=== PATIENT | female | born 1985 | race Caucasian/White ===

== ENCOUNTER 2016-04-03 22:20 | Emergency (ER) | payer OTHER ==
--- NOTE | 2016-04-04 00:12 | ED CLINICAL REPORT ---
Clinical Report - Physicians/Mid Levels [facility] [address] [place] [address] 04/03/2016 22:21 Patient: HERNANDO WILSON Time Seen: 2230. Arrived- By private vehicle. Historian- patient. HISTORY OF PRESENT ILLNESS Chief Complaint: PALPITATIONS. This started past several days, is still present but is better now and is now gone. It was abrupt in onset and has been intermittent. Modifying factors. Not worsened by anything. Not relieved by anything. It is described as a fast heart beat. No chest pain or discomfort, difficulty breathing, sweating episodes or fainting episodes. No dizziness, tingling or muscle spasms. ( reports burping and indigestion. states she took her pulse when this happens and reports it being normal. no family hx of cardiac disease/sudden . reports no leg swelling, recent trauma, hemoptysis, hx of DVT/PE). 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 Similar symptoms previously: Many times. ( reports normal EKGs). Recent medical care: Not recently seen/assessed. REVIEW OF SYSTEMS All systems otherwise negative, except as recorded above. PAST HISTORY See nurses notes. Medications: Sertraline HCl Oral. Xanax Oral (Tablet 0.25 mg) 1 tablet, as needed. Allergies: No Known Drug Allergy. SOCIAL HISTORY Never smoker. No alcohol use or drug use. Is a local resident. FAMILY HISTORY (no family hx of cardiac disease). ADDITIONAL NOTES The nursing notes have been reviewed. PHYSICAL EXAM Vital Signs: 04/03/2016 22:25 BP: 125/73. HR: 88. RR: 20. O2 saturation: 100%. Pain level now: 3/10. Blood pressure normal. Oxygen saturation normal. Appearance: Alert. Oriented X3. No acute distress. Eyes: Pupils equal, round and reactive to light. Eyes normal inspection. ENT: Ears normal. Nose normal. Pharynx normal. Neck: Normal inspection. Neck supple. CVS: Normal heart rate and rhythm. Heart sounds normal. Pulses normal. Respiratory: No respiratory distress. Breath sounds normal. Chest nontender. Abdomen: Soft and nontender. Bowel sounds normal. No organomegaly. No mass. Femoral pulses equal. Back: Normal external inspection. Skin: Skin warm and dry. Normal skin color. No rash. Normal skin turgor. Extremities: Extremities exhibit normal ROM. No lower extremity edema. Neuro: Oriented X 3. No motor deficit. No sensory deficit. Reflexes normal. LABS, X-RAYS, AND EKG EKG: No acute process. No acute ischemia. Normal EKG. Normal sinus rhythm. Rate: 85. Normal P waves. Normal FERNANDO. Normal QRS complex. Normal axis. Normal ST and T waves, QT and QTc. The study has been interpreted contemporaneously by me. The study has been independently viewed by me. The EKG appears to be a good tracing. Chest X-ray: (PROCEDURE: XR CHEST 2 VIEW INDICATION: PALPITATIONS TECHNIQUE: PA and lateral views. COMPARISON: None. FINDINGS: Lungs are clear. Heart and mediastinum are normal. Thorax is normal. IMPRESSION: 1. Negative chest.). Laboratory Tests: UA-Culture if indicated: (GEE: 04/03/2016 23:10) ( [facility] 23:53) Final results Test Result Flag Units (Reference) URINE COLOR YELLOW URINE APPEARANCE CLEAR URINE GLUCOSE NEGATIVE (NEGATIVE) URINE BILIRUBIN NEGATIVE (NEGATIVE) URINE KETONE NEGATIVE (NEGATIVE) URINE SPECIFIC GRAVITY 1.010 (1.010-1.030) URINE PH 8.0 (5.0-8.0) URINE PROTEIN NEGATIVE (NEGATIVE) URINE UROBILINOGEN 0.2 EU/dL (0.2-1.0) URINE NITRITE NEGATIVE (NEGATIVE) URINE BLOOD 3+ (NEGATIVE) URINE LEUK ESTERASE NEGATIVE (NEGATIVE) URINE RBC 10-25 rbc/hpf (0-1) URINE WBC 3-5 wbc/hpf (0-1) URINE EPITHELIAL CELLS 3-5 EPI/hpf (0-5) URINE BACTERIA FEW (1+) (NONE SEEN) URINE COMMENT CULT NOT INDICATED URINE CULTURES ARE SET-UP BASED ON THE FOLLOWING CRITERIA:POSITIVE NITRITEPOSITIVE LEUKOCYTE ESTERASEGREATER THAN 10 WHITE BLOOD CELLSMODERATE (2+) OR GREATER BACTERIA Urine: (GEE: 04/03/2016 23:10) ( MsgRcvd 04/03/2016 23:45) Final results Test Result Flag Units (Reference) URINE NEGATIVE Urine Drug Screen: (GEE: 04/03/2016 23:10) ( MsgRcvd 04/03/2016 23:58) Final results Test Result Flag Units (Reference) AMPHETAMINE/METHAMPHETAMINE NEGATIVE (NEGATIVE) BARBITURATE NEGATIVE (NEGATIVE) BENZODIAZEPINE NEGATIVE (NEGATIVE) CANNABINOID NEGATIVE (NEGATIVE) COCAINE NEGATIVE (NEGATIVE) ECSTASY NEGATIVE (NEGATIVE) METHADONE NEGATIVE (NEGATIVE) OPIATE NEGATIVE (NEGATIVE) The urine drug screen is a qualitative screening test fordrug overdose and abuse. All screen results should beconsidered as presumptive.Drugs screened for are as follows:BenzodiazepinesCocaineAmphetamines/MetamphetaminesTHC (Tetrahydrocannabinol)OpiatesBarbituratesEcstasyMethadonePositive results are unconfirmed. For confirmation, notifythe lab for the specimen to be sent to the reference lab.All confirmations must be performed by a differentmethodology.The ingestion of natural herbal and plant productscontaining Ephedra/Ephedra metabolites can produce in urineone or more substances capable of cross reacting withamphetamine/methamphetamine immunoassays. These testsprovide a preliminary result only. A more specificalternative chemical method must be used to obtain aconfirmed analytical result. . PROGRESS AND PROCEDURES Course of Care: The patient is a pleasant 31-year-old female with no pertinent past medical history presenting for evaluation of palpitations. Have considered pulmonary embolism and acute myocardial infarction. Patient does not have any risk factors for these disease processesand does not have any family history of thisoccurring in early age. No family history of sudden either. Do not feel patient requires further workup for these entities other than chest x-ray and EKG. We will be evaluating for any signs of conduction abnormalities such as Brugada syndromeas well as spontaneous pneumothorax or pneumonia. patient is agreeable to the treatment plan. Because of the patient's concern of potential gastroesophageal reflux disease,we'll provide patient with a GI cocktail. Patient was reevaluated after the chest x-ray and EKG were completed. Patient without any abnormalities concerning for Brugada syndrome. No consolidations or pneumothorax noted on chest x-ray. Patient reports the GI cocktail had significantly helped her symptoms however has worn off. Head discussion with patient in regards to gastroesophageal reflux As well as treatment. discussed with patient workup, diagnosis, home care, follow-up, and return precautions. All questions answered. The patient expressed understanding of these instructions and was agreeable to them. Prior to patient'sdeparture from the emergency department, she is noted to be resting in bed in no acute distress. Repeat exam continues to be reassuring and benign. Do not feel patient needs to be admitted to the hospital require further emergency department workup/evaluation. Disposition: Discharged. Condition: good. CLINICAL IMPRESSION 04/03/2016 22:25 BP: 125/73. HR: 88. RR: 20. O2 saturation: 100%. Pain level now: 05/01. Blood pressure normal. Oxygen saturation normal. Palpitations (acute). Gastroesophageal reflux disease (acute). INSTRUCTIONS Warnings: GENERAL WARNINGS: Return or contact your physician immediately if your condition worsens or changes unexpectedly, if not improving as expected, or if other problems arise. SPECIFICALLY, return if you develop chest, neck, jaw, shoulder, arm, or back pain, difficulty breathing, a fluttering sensation in your chest, lightheadedness, fainting, excessive fatigue, or sudden sweating. Your Current Medications: CONTINUE TAKING THE FOLLOWING MEDICATIONS: Sertraline HCl Oral. Xanax Oral : Tablet 0.25 mg, 1 tablet, prn. Prescription Medications: Pepcid 20 mg: take 1 orally every 12 hours for 10 days as needed for indigestion, upset stomach or heartburn. Dispense twenty (20). No refills. Substitution is permissible. Follow-up: Return to the emergency department as needed. Follow up with your doctor in three days. Reason for referral: recheck today's concerns. Summary of care provided to patient via paper. Screening today revealed the patient's blood pressure to be in the normal range. The patient should follow up with a primary care provider for blood pressure management. Understanding of the discharge instructions verbalized by patient. (Electronically signed by Sandor Nice Dr. 04/04/2016 2:38)
--- NOTE | 2016-04-04 00:13 | ED ORDER SUMMARY ---
..... Patient: HERNANDO WILSON OrderSheet [facility] VisitID: [id number] [place] [address] 31y, F Registration Date/Time: 04/03/2016 ORDER SHEET Weight: 63.5 kg (stated) Allergies: No Known Drug Allergy GENERAL ORDERS: Saw Boss (Continuous) (palpitations) (22:22 04/03/2016 Eunice Xiong) (Ack 22:23 AMcQuoid ER Tech1) (22:29 IJurca ER Tech1) Chest 2V Urgent (22:22 04/03/2016 Eunice Xiong) (Ack 22:23 AMcQuoid ER Tech1) (23:26 AMcQuoid ER Tech1) EKG - ER Stat (22:23 04/03/2016 Eunice Xiong) (Ack 22:23 AMcQuoid ER Tech1) (22:29 IJurca ER Tech1) Pulse oximeter (22:23 04/03/2016 Eunice Xiong) (Ack 22:23 AMcQuoid ER Tech1) (22:29 IJurca ER Tech1) UA-Culture if indicated Urgent (22:23 04/03/2016 Eunice Xiong) (Ack 22:29 AMcQuoid ER Tech1) (23:26 AMcQuoid ER Tech1) Urine Urgent (22:23 04/03/2016 Eunice Xiong) (Ack 22:29 AMcQuoid ER Tech1) (23:26 AMcQuoid ER Tech1) Urine Drug Screen Urgent (22:23 04/03/2016 Eunice Xiong) (Ack 22:29 AMcQuoid ER Tech1) (23:26 AMcQuoid ER Tech1) MEDICATION ORDERS: GI Cocktail WHITE PO 30 mL (NOW) (22:33 04/03/2016 Eunice Xiong) (Ack 22:33 HSoule) (22:40 HSoule) IV FLUIDS: ORDER SHEET NOTES: [Electronically signed by Sandor Nice Dr. (02:38 04/04/2016)] [Electronically signed by Tona Padilla (23:40 04/04/2016)] [Electronically locked/signed by Tona Padilla (23:40 04/04/2016)]
--- NOTE | 2016-04-04 00:13 | ED NURSING NOTES ---
Clinical Report - Nurses [facility] [address] [place] [address] 04/03/2016 22:21 Patient: HERNANDO WILSON TRIAGE Triage time 22:20 Apr 03 2016. Acuity: LEVEL 3. Chief Complaint: CHEST PAIN and (Fluttering). SEPSIS SCREEN: Sepsis Screen: negative. Negative (no infection suspected/documented). PASCALE COMA SCORE: [place] Coma Scale: 15- eyes open spontaneously (4); best verbal response- oriented x 4 (5); best motor response- obeys commands (6). --22:31 Tona Padilla 22:25 04/03/16. BP: 125/73. HR: 88. RR: 20. O2 saturation: 100% on room air. Pain level now: 05/01. --22:31 Tona Padilla. Weight: 63.5 kg stated. Height/Length: 61 inches Per Patient. BMI: 26.5. --22:30 Tona Padilla. Medications Xanax Oral (Tablet 0.25 mg) 1 tablet, as needed. --22:26 Tona Padilla Sertraline HCl Oral. --22:28 Tona Padilla. Medication/allergy information source: the patient. --22:31 Tona Padilla. Allergies No Known Drug Allergy. --22:26 Tona Padilla. History Arrived by private vehicle. Historian: patient. Unaccompanied. Primary physician ([facility]). Onset. (3 weeks). ( Patient reports onset of palpitations about three weeks ago. She reports it is getting more frequent. She reports three episodes tonight along with some mild chest discomfort that prompted her to come in tonight.). No difficulty breathing, sweating episodes or vomiting. PAST MEDICAL HX: Immunizations: up-to-date. Last normal menstrual period now- Wednesday. SOCIAL HX: Never smoker. No alcohol use or drug use. No infectious disease exposure. ABUSE ASSESSMENT: No report of abuse. FALL RISK ASSESSMENT: Fall risk assessment completed. No fall risk identified. NUTRITIONAL RISK ASSESSMENT: The nutritional risk assessment revealed no deficiencies. FUNCTIONAL ASSESSMENT: Functional assessment: no impairments noted. LEARNING NEEDS ASSESSMENT: The learning needs assessment revealed no barriers. SKIN INTEGRITY ASSESSMENT: Skin integrity risk assessment completed. No skin integrity risk identified. --22:31 Tona Padilla. PROBLEMS: Gastritis. Gastroesophageal Reflux. Anxiety Reaction. --22:27 Tona Padilla. ADDITIONAL SURGERIES: Appendectomy. Cholecystectomy. Parathyroidectomy. Previous Abdominal Surgery. --22:27 Tona Padilla. Interventions ID band on patient. To treatment room. --22:31 Tona Padilla. PHYSICAL ASSESSMENT 22:04/03/16. Patient gowned. GENERAL / NEURO / PSYCH: Alert. Oriented X 4. Appears in no acute distress. HEENT: Mucous membranes are pink. RESPIRATORY: Respirations not labored. CVS: Normal sinus rhythm noted. Pulses within normal limits. EXTREMITIES: No lower extremity edema. SKIN: Skin is warm and dry. --22:32 Tona Padilla. NURSING PROGRESS NOTES 22:33 04/03/16. Pulse oximeter and NIBP monitor placed on patient; monitor alarms on. Patient gowned. Reassurance given to the patient. Two patient identifiers checked. Call light placed in reach. Side rails up x 1. Bed placed in lowest position. Brakes of bed on. Patient ready for evaluation- chart flagged and ED physician notified. --22:33 Tona Padilla EKG time: (22:30 Apr 03 2016). EKG was performed by a tech and shown to the ED physician. --22:34 Tona Padilla delinquent tax collector placed on patient; monitor alarms on. --22:34 Tona Padilla 22:40 04/03/2016 GI COCKTAIL WHITE (Simethicone) PO Oral Suspension 30 mL given. Allergies verified and confirmed 5 rights. --22:40 Tona Padilla ( Assisted up to restroom). --23:07 Tona Padilla ( Patient Urine negative, radiology notified). --23:17 Tona Padilla 23:17 04/03/16. BP: 118/62. HR: 86. RR: 20. O2 saturation: 95% on room air. Pain level now: 3/10. --23:18 Tona Padilla Patient walked to radiology with tech. (23:Apr 03 2016). Patient walked back to ED from radiology with tech. (:Apr 03 2016). --23:24 Tona Padilla. DISPOSITION / DISCHARGE Condition at departure: stable. No learning barriers present. Discharge instructions provided and reviewed with the patient. Reviewed medication(s) side effects, precautions, dosing and course information. Prescription(s) given to the patient. Patient verbalized understanding. Written instructions provided in Cypriot. ( Follow up with PCP in three days. Return to ER of symptoms worsen). The patient was discharged by the physician. She was discharged home and unaccompanied at time of discharge. She left the Emergency Department ambulatory and via private vehicle. Patient driving. --00:20 Tona Padilla 00:19 04/04/16. BP: 109/65. HR: 80. RR: 20. O2 saturation: 100% on room air. Pain level now: 04/03. --00:20 Tona Padilla. Locked/Released at 04/04/2016 23:40 by Tona Padilla,
--- NOTE | 2016-04-04 00:13 | ED NURSING NOTES ---
Clinical Report - Nurses [facility] [address] [place] [address] 04/03/2016 22:21 Patient: HERNANDO WILSON TRIAGE Triage time 22:20 Apr 03 2016. Acuity: LEVEL 3. Chief Complaint: CHEST PAIN and (Fluttering). SEPSIS SCREEN: Sepsis Screen: negative. Negative (no infection suspected/documented). PASCALE COMA SCORE: [place] Coma Scale: 15- eyes open spontaneously (4); best verbal response- oriented x 4 (5); best motor response- obeys commands (6). --22:31 Tona Padilla 22:25 04/03/16. BP: 125/73. HR: 88. RR: 20. O2 saturation: 100% on room air. Pain level now: 05/01. --22:31 Tona Padilla. Weight: 63.5 kg stated. Height/Length: 61 inches Per Patient. BMI: 26.5. --22:30 Tona Padilla. Medications Xanax Oral (Tablet 0.25 mg) 1 tablet, as needed. --22:26 Tona Padilla Sertraline HCl Oral. --22:28 Tona Padilla. Medication/allergy information source: the patient. --22:31 Tona Padilla. Allergies No Known Drug Allergy. --22:26 Tona Padilla. History Arrived by private vehicle. Historian: patient. Unaccompanied. Primary physician ([facility]). Onset. (3 weeks). ( Patient reports onset of palpitations about three weeks ago. She reports it is getting more frequent. She reports three episodes tonight along with some mild chest discomfort that prompted her to come in tonight.). No difficulty breathing, sweating episodes or vomiting. PAST MEDICAL HX: Immunizations: up-to-date. Last normal menstrual period now- Wednesday. SOCIAL HX: Never smoker. No alcohol use or drug use. No infectious disease exposure. ABUSE ASSESSMENT: No report of abuse. FALL RISK ASSESSMENT: Fall risk assessment completed. No fall risk identified. NUTRITIONAL RISK ASSESSMENT: The nutritional risk assessment revealed no deficiencies. FUNCTIONAL ASSESSMENT: Functional assessment: no impairments noted. LEARNING NEEDS ASSESSMENT: The learning needs assessment revealed no barriers. SKIN INTEGRITY ASSESSMENT: Skin integrity risk assessment completed. No skin integrity risk identified. --22:31 Tona Padilla. PROBLEMS: Gastritis. Gastroesophageal Reflux. Anxiety Reaction. --22:27 Tona Padilla. ADDITIONAL SURGERIES: Appendectomy. Cholecystectomy. Parathyroidectomy. Previous Abdominal Surgery. --22:27 Tona Padilla. Interventions ID band on patient. To treatment room. --22:31 Tona Padilla. PHYSICAL ASSESSMENT 22:04/03/16. Patient gowned. GENERAL / NEURO / PSYCH: Alert. Oriented X 4. Appears in no acute distress. HEENT: Mucous membranes are pink. RESPIRATORY: Respirations not labored. CVS: Normal sinus rhythm noted. Pulses within normal limits. EXTREMITIES: No lower extremity edema. SKIN: Skin is warm and dry. --22:32 Tona Padilla. NURSING PROGRESS NOTES 22:33 04/03/16. Pulse oximeter and NIBP monitor placed on patient; monitor alarms on. Patient gowned. Reassurance given to the patient. Two patient identifiers checked. Call light placed in reach. Side rails up x 1. Bed placed in lowest position. Brakes of bed on. Patient ready for evaluation- chart flagged and ED physician notified. --22:33 Tona Padilla EKG time: (22:30 Apr 03 2016). EKG was performed by a tech and shown to the ED physician. --22:34 Tona Padilla dental service chief placed on patient; monitor alarms on. --22:34 Tona Padilla 22:40 04/03/2016 GI COCKTAIL WHITE (Simethicone) PO Oral Suspension 30 mL given. Allergies verified and confirmed 5 rights. --22:40 Tona Padilla ( Assisted up to restroom). --23:07 Tona Padilla ( Patient Urine negative, radiology notified). --23:17 Tona Padilla 23:17 04/03/16. BP: 118/62. HR: 86. RR: 20. O2 saturation: 95% on room air. Pain level now: 3/10. --23:18 Tona Padilla Patient walked to radiology with tech. (23:Apr 03 2016). Patient walked back to ED from radiology with tech. (:Apr 03 2016). --23:24 Tona Padilla. DISPOSITION / DISCHARGE Condition at departure: stable. No learning barriers present. Discharge instructions provided and reviewed with the patient. Reviewed medication(s) side effects, precautions, dosing and course information. Prescription(s) given to the patient. Patient verbalized understanding. Written instructions provided in Botswanan. ( Follow up with PCP in three days. Return to ER of symptoms worsen). The patient was discharged by the physician. She was discharged home and unaccompanied at time of discharge. She left the Emergency Department ambulatory and via private vehicle. Patient driving. --00:20 Tona Padilla 00:19 04/04/16. BP: 109/65. HR: 80. RR: 20. O2 saturation: 100% on room air. Pain level now: 04/03. --00:20 Tona Padilla. Locked/Released at 04/04/2016 23:40 by Tona Padilla,
--- NOTE | 2016-04-04 00:13 | ED ORDER SUMMARY ---
..... Patient: HERNANDO WILSON OrderSheet [facility] VisitID: [id number] [place] [address] 31y, F Registration Date/Time: 04/03/2016 ORDER SHEET Weight: 63.5 kg (stated) Allergies: No Known Drug Allergy GENERAL ORDERS: Issuer (Continuous) (palpitations) (22:22 04/03/2016 Eunice Xiong) (Ack 22:23 AMcQuoid ER Tech1) (22:29 IJurca ER Tech1) Chest 2V Urgent (22:22 04/03/2016 Eunice Xiong) (Ack 22:23 AMcQuoid ER Tech1) (23:26 AMcQuoid ER Tech1) EKG - ER Stat (22:23 04/03/2016 Eunice Xiong) (Ack 22:23 AMcQuoid ER Tech1) (22:29 IJurca ER Tech1) Pulse oximeter (22:23 04/03/2016 Eunice Xiong) (Ack 22:23 AMcQuoid ER Tech1) (22:29 IJurca ER Tech1) UA-Culture if indicated Urgent (22:23 04/03/2016 Eunice Xiong) (Ack 22:29 AMcQuoid ER Tech1) (23:26 AMcQuoid ER Tech1) Urine Urgent (22:23 04/03/2016 Eunice Xiong) (Ack 22:29 AMcQuoid ER Tech1) (23:26 AMcQuoid ER Tech1) Urine Drug Screen Urgent (22:23 04/03/2016 Eunice Xiong) (Ack 22:29 AMcQuoid ER Tech1) (23:26 AMcQuoid ER Tech1) MEDICATION ORDERS: GI Cocktail WHITE PO 30 mL (NOW) (22:33 04/03/2016 Eunice Xiong) (Ack 22:33 HSoule) (22:40 HSoule) IV FLUIDS: ORDER SHEET NOTES: [Electronically signed by Sandor Nice Dr. (02:38 04/04/2016)] [Electronically signed by Tona Padilla (23:40 04/04/2016)] [Electronically locked/signed by Tona Padilla (23:40 04/04/2016)]
--- NOTE | 2016-04-04 00:32 | DIAGNOSTIC IMAGING REPORT ---
PROCEDURE: XR CHEST 2 VIEW INDICATION: PALPITATIONS TECHNIQUE: PA and lateral views. COMPARISON: None. FINDINGS: Lungs are clear. Heart and mediastinum are normal. Thorax is normal. IMPRESSION: 1. Negative chest.
--- NOTE | 2016-04-04 23:40 | ED DISCHARGE INSTRUCTIONS ---
Patient: HERNANDO WILSON General Instructions [facility] VisitID: [id number] [place] [address] 31y, F Registration Date/Time: 04/03/2016 04/03/2016 22:25 BP: 125/73. HR: 88. RR: 20. O2 saturation: 100%. Pain level now: 05/01. Blood pressure normal. Oxygen saturation normal. Palpitations (acute). Gastroesophageal reflux disease (acute). INSTRUCTIONS Warnings: GENERAL WARNINGS: Return or contact your physician immediately if your condition worsens or changes unexpectedly, if not improving as expected, or if other problems arise. SPECIFICALLY, return if you develop chest, neck, jaw, shoulder, arm, or back pain, difficulty breathing, a fluttering sensation in your chest, lightheadedness, fainting, excessive fatigue, or sudden sweating. Your Current Medications: CONTINUE TAKING THE FOLLOWING MEDICATIONS: Sertraline HCl Oral. Xanax Oral : Tablet 0.25 mg, 1 tablet, prn. Prescription Medications: Pepcid 20 mg: take 1 orally every 12 hours for 10 days as needed for indigestion, upset stomach or heartburn. Dispense twenty (20). No refills. Substitution is permissible. Follow-up: Return to the emergency department as needed. Follow up with your doctor in three days. Reason for referral: recheck today's concerns. Summary of care provided to patient via paper. Screening today revealed the patient's blood pressure to be in the normal range. The patient should follow up with a primary care provider for blood pressure management. Understanding of the discharge instructions verbalized by patient. ADDITIONAL INFORMATION Heart Palpitations Palpitations refers to the feeling that your heart is beating hard, fast or irregular. Some people describe it as "pounding" or "skipped beats". Palpitations may occur in persons with heart disease, but can also occur in healthy persons. Heart-Related Causes: Arrhythmia (a change from the heart's normal rhythm) Disease of the heart valves Skn-Pobux-Bmksadq Causes: Certain medicines (such as asthma inhalers and decongestants) Some herbal supplements, energy drinks and pills, and weight loss pills Illegal stimulant drugs (such as cocaine, crank, methamphetamine, PCP) Caffeine, alcohol and tobacco Medical conditions such as thyroid disease, anemia, anxiety and panic disorder Sometimes the cause cannot be found. Home Care: Avoid excess caffeine, alcohol, tobacco and any stimulant drugs. Tell your doctor about any prescription or xoez-jdd-xqmmxmq or herbal medicines you take. Follow Up with your doctor or as advised by our staff. Get Prompt Medical Attention if any of the following occur together with palpitations: Weakness, dizziness, light-headed or fainting Chest pain or shortness of breath Rapid heart rate (over 120 beats per minute, at rest) Palpitations that lasts over 20 minutes Weakness of an arm or leg or one side of the face Difficulty with speech or vision GERD (Adult) The esophagus is a tube that carries food from the mouth to the stomach. A valve at the lower end of the esophagus prevents stomach acid from flowing upward. If this valve does not work properly, acid from the stomach enters the esophagus. If this occurs over and over, the acid will injure the lining of the esophagus. This condition is called GERD (gastroesophageal reflux disease) or acid reflux. When stomach acid flows upward into the esophagus, it causes burning, pressure or sharp pain in the upper abdomen or mid to lower chest. The pain can spread to the neck, back, or shoulder, similar to heart pain (angina). There may be belching, an acid taste in the back of the throat, chronic cough, or sore throat or hoarseness. GERD symptoms often occur during the day after a big meal, but it can also occur at night when lying down. Smoking,as well as drinking alcohol, increases the risk of GERD. GERD is a chronic condition. Once it begins, it is often lifelong. Treatment includes changes in eating habits and the use of acid roxann medications to decrease the amount of acid in the stomach. Symptoms often improve with treatment, but if treatment is stopped, the symptoms usually return after a few months. So most persons with GERD will need to continue treatment. Home Care: Take the prescribed acid roxann medication for the full course of treatment even if you begin to feel better sooner. This medication can take up to several days to fully control your symptoms. If you cant afford the prescribed medication, you can try rlwg-qww-lguhuzf acid blockers, such as Pepcid AC, Tagamet, Zantac, or Aciphex. If these do not relieve your symptoms, a stronger acid-roxann can be tried, such as Prilosec OTC. You can use antacids, such as Tums, Rolaids, Mylanta, or Maalox, for pain. This will be useful the first few days after starting acid blockers when the blockers havent started working yet. Follow the directions on the label. Liquid antacids may work better than tablets. Note that antacids can interfere with absorption of certain medications. Specifically, do not take Tagamet (cimetidine), Zantac (ranitidine), or Carafate (sucralfate) within 1 hour of taking an antacid. Talk with your pharmacist if you have any questions. Limit or avoid fatty, fried, and spicy foods, as well as coffee, chocolate, mint, and foods with high acid content such as tomatoes and citrus fruit and juices (orange, grapefruit, lemon). Avoid alcohol and smoking. Dont eat large meals, especially at night. Frequent, smaller meals are best. Do not lie down right after eating. And dont eat anything 3 hours before going to bed. If you are overweight, losing weight will reduce symptoms. Women should not wear corsets or girdles because this increases pressure on the stomach and worsens reflux. If your symptoms occur during sleep, use a foam wedge to elevate your upper body (not just your head.) Or, place 4" blocks under the head of your bed. Follow Up with your doctor or as advised by our staff. Further testing may be needed. If you do not begin to improve over the next 4 days, contact your doctor. If you had an x-ray, CT scan, or ECG (electrocardiogram), it will be reviewed by a specialist. Youll be notified of any new findings that affect your care. Get Prompt Medical Attention if any of the following occur: Stomach pain gets worse or moves to the lower right abdomen (appendix area) Chest pain appears or gets worse, or spreads to the back, neck, shoulder, or arm Frequent vomiting (cant keep down liquids) Blood in the stool or vomit (red or black in color) Feeling weak or dizzy, fainting, or trouble breathing Fever of 100.4F (38C) or higher, or as directed by your healthcare provider Famotidine Oral tablet What is this medicine? FAMOTIDINE (fa ONEIL harris) is a type of antihistamine that blocks the release of stomach acid. It is used to treat stomach or intestinal ulcers. It can also relieve heartburn from acid reflux. How should I use this medicine? Take this medicine by mouth with a glass of water. Follow the directions on the prescription label. If you only take this medicine once a day, take it at bedtime. Take your doses at regular intervals. Do not take your medicine more often than directed. Talk to your mechanical repair worker regarding the use of this medicine in children. Special care may be needed. What side effects may I notice from receiving this medicine? Side effects that you should report to your doctor or health career information specialist as soon as possible: agitation, nervousness confusion hallucinations skin rash, itching Side effects that usually do not require medical attention (report to your doctor or health career information specialist if they continue or are bothersome): constipation diarrhea dizziness headache What may interact with this medicine? delavirdine itraconazole ketoconazole What if I miss a dose? If you miss a dose, take it as soon as you can. If it is almost time for your next dose, take only that dose. Do not take double or extra doses. Where should I keep my medicine? Keep out of the reach of children. Store at room temperature between 15 and 30 degrees C (59 and 86 degrees F). Do not freeze. Throw away any unused medicine after the expiration date. What should I tell my health care provider before I take this medicine? They need to know if you have any of these conditions: kidney or liver disease trouble swallowing an unusual or allergic reaction to famotidine, other medicines, foods, dyes, or preservatives or trying to get breast-feeding What should I watch for while using this medicine? Tell your doctor or health career information specialist if your condition does not start to get better or if it gets worse. Finish the full course of tablets prescribed, even if you feel better. Do not take with aspirin, ibuprofen or other antiinflammatory medicines. These can make your condition worse. Do not smoke cigarettes or drink alcohol. These cause irritation in your stomach and can increase the time it will take for ulcers to heal. If you get black, tarry stools or vomit up what looks like coffee grounds, call your doctor or health career information specialist at once. You may have a bleeding ulcer. You have been given the following additional information: Palpitations GERD (Adult) Famotidine Oral tablet (Electronically signed by Sandor Nice Dr. 04/04/2016 2:38)
--- NOTE | 2016-04-04 23:40 | ED MAR SUMMARY ---
..... Medication Administration Record [facility] [address] [place] [address] Patient: HERNANDO WILSON Visit ID: [id number] 31y, F Weight: 63.5 kg Height/Length: 61 in BMI: 26.5 ALLERGIES: No Known Drug Allergy Given 22:40 04/03/2016 Tona Padilla, Medication Administered: GI COCKTAIL WHITE [PO] (SIMETHICONE), Dose: 30 mL Oral Suspension PO. Medication Ordered: GI Cocktail WHITE PO 30 mL (NOW).
--- NOTE | 2016-04-04 23:40 | ED MED RECONCILIATION SUMMARY ---
Patient: ROSY WILSONROBBY Donaldson Medication Reconciliation Report [facility] VisitID: [id number] [address] [place] [address] 31y, F Registration Date/Time: 04/03/2016 Weight: 63.5 kg Height/Length: 61 in. BMI: 26.5 ALLERGIES: No Known Drug Allergy The patient's Home Medications are listed below: CONTINUE TAKING THE FOLLOWING MEDICATIONS: Sertraline HCl Oral Xanax Oral (0.25 mg) 1 tablet The source(s) of the original Home Medication information: patient The following Medications were given to the patient in the Emergency Department: GI COCKTAIL WHITE [PO] PO 30 mL, administered: 04/03/2016 10:40:00 PM The following Medications were prescribed to the patient: Pepcid 20 mg: take 1 orally every 12 hours for 10 days as needed for indigestion, upset stomach or heartburn. Dispense twenty (20). No refills. Substitution is permissible. -- Sandor Nice Dr.
--- NOTE | 2016-04-04 23:40 | ED MAR SUMMARY ---
..... Medication Administration Record [facility] [address] [place] [address] Patient: HERNANDO WILSON Visit ID: [id number] 31y, F Weight: 63.5 kg Height/Length: 61 in BMI: 26.5 ALLERGIES: No Known Drug Allergy Given 22:40 04/03/2016 Tona Padilla, Medication Administered: GI COCKTAIL WHITE [PO] (SIMETHICONE), Dose: 30 mL Oral Suspension PO. Medication Ordered: GI Cocktail WHITE PO 30 mL (NOW).
--- NOTE | 2016-04-04 23:40 | ED MED RECONCILIATION SUMMARY ---
Patient: ROSY WILSONROBBY Donaldson Medication Reconciliation Report [facility] VisitID: [id number] [address] [address] 31y, F Registration Date/Time: 04/03/2016 Weight: 63.5 kg Height/Length: 61 in. BMI: 26.5 ALLERGIES: No Known Drug Allergy The patient's Home Medications are listed below: CONTINUE TAKING THE FOLLOWING MEDICATIONS: Sertraline HCl Oral Xanax Oral (0.25 mg) 1 tablet The source(s) of the original Home Medication information: patient The following Medications were given to the patient in the Emergency Department: GI COCKTAIL WHITE [PO] PO 30 mL, administered: 04/03/2016 10:40:00 PM The following Medications were prescribed to the patient: Pepcid 20 mg: take 1 orally every 12 hours for 10 days as needed for indigestion, upset stomach or heartburn. Dispense twenty (20). No refills. Substitution is permissible. -- Sandor Nice Dr.
--- NOTE | 2016-04-04 23:40 | ED DISCHARGE INSTRUCTIONS ---
Patient: HERNANDO WILSON General Instructions [facility] VisitID: [id number] [place] [address] 31y, F Registration Date/Time: 04/03/2016 04/03/2016 22:25 BP: 125/73. HR: 88. RR: 20. O2 saturation: 100%. Pain level now: 05/01. Blood pressure normal. Oxygen saturation normal. Palpitations (acute). Gastroesophageal reflux disease (acute). INSTRUCTIONS Warnings: GENERAL WARNINGS: Return or contact your physician immediately if your condition worsens or changes unexpectedly, if not improving as expected, or if other problems arise. SPECIFICALLY, return if you develop chest, neck, jaw, shoulder, arm, or back pain, difficulty breathing, a fluttering sensation in your chest, lightheadedness, fainting, excessive fatigue, or sudden sweating. Your Current Medications: CONTINUE TAKING THE FOLLOWING MEDICATIONS: Sertraline HCl Oral. Xanax Oral : Tablet 0.25 mg, 1 tablet, prn. Prescription Medications: Pepcid 20 mg: take 1 orally every 12 hours for 10 days as needed for indigestion, upset stomach or heartburn. Dispense twenty (20). No refills. Substitution is permissible. Follow-up: Return to the emergency department as needed. Follow up with your doctor in three days. Reason for referral: recheck today's concerns. Summary of care provided to patient via paper. Screening today revealed the patient's blood pressure to be in the normal range. The patient should follow up with a primary care provider for blood pressure management. Understanding of the discharge instructions verbalized by patient. ADDITIONAL INFORMATION Heart Palpitations Palpitations refers to the feeling that your heart is beating hard, fast or irregular. Some people describe it as "pounding" or "skipped beats". Palpitations may occur in persons with heart disease, but can also occur in healthy persons. Heart-Related Causes: Arrhythmia (a change from the heart's normal rhythm) Disease of the heart valves Dkn-Yqmgk-Gtmqhyt Causes: Certain medicines (such as asthma inhalers and decongestants) Some herbal supplements, energy drinks and pills, and weight loss pills Illegal stimulant drugs (such as cocaine, crank, methamphetamine, PCP) Caffeine, alcohol and tobacco Medical conditions such as thyroid disease, anemia, anxiety and panic disorder Sometimes the cause cannot be found. Home Care: Avoid excess caffeine, alcohol, tobacco and any stimulant drugs. Tell your doctor about any prescription or undc-gtg-udkuzhf or herbal medicines you take. Follow Up with your doctor or as advised by our staff. Get Prompt Medical Attention if any of the following occur together with palpitations: Weakness, dizziness, light-headed or fainting Chest pain or shortness of breath Rapid heart rate (over 120 beats per minute, at rest) Palpitations that lasts over 20 minutes Weakness of an arm or leg or one side of the face Difficulty with speech or vision GERD (Adult) The esophagus is a tube that carries food from the mouth to the stomach. A valve at the lower end of the esophagus prevents stomach acid from flowing upward. If this valve does not work properly, acid from the stomach enters the esophagus. If this occurs over and over, the acid will injure the lining of the esophagus. This condition is called GERD (gastroesophageal reflux disease) or acid reflux. When stomach acid flows upward into the esophagus, it causes burning, pressure or sharp pain in the upper abdomen or mid to lower chest. The pain can spread to the neck, back, or shoulder, similar to heart pain (angina). There may be belching, an acid taste in the back of the throat, chronic cough, or sore throat or hoarseness. GERD symptoms often occur during the day after a big meal, but it can also occur at night when lying down. Smoking,as well as drinking alcohol, increases the risk of GERD. GERD is a chronic condition. Once it begins, it is often lifelong. Treatment includes changes in eating habits and the use of acid roxann medications to decrease the amount of acid in the stomach. Symptoms often improve with treatment, but if treatment is stopped, the symptoms usually return after a few months. So most persons with GERD will need to continue treatment. Home Care: Take the prescribed acid roxann medication for the full course of treatment even if you begin to feel better sooner. This medication can take up to several days to fully control your symptoms. If you cant afford the prescribed medication, you can try fdng-dgb-temstqj acid blockers, such as Pepcid AC, Tagamet, Zantac, or Aciphex. If these do not relieve your symptoms, a stronger acid-roxann can be tried, such as Prilosec OTC. You can use antacids, such as Tums, Rolaids, Mylanta, or Maalox, for pain. This will be useful the first few days after starting acid blockers when the blockers havent started working yet. Follow the directions on the label. Liquid antacids may work better than tablets. Note that antacids can interfere with absorption of certain medications. Specifically, do not take Tagamet (cimetidine), Zantac (ranitidine), or Carafate (sucralfate) within 1 hour of taking an antacid. Talk with your pharmacist if you have any questions. Limit or avoid fatty, fried, and spicy foods, as well as coffee, chocolate, mint, and foods with high acid content such as tomatoes and citrus fruit and juices (orange, grapefruit, lemon). Avoid alcohol and smoking. Dont eat large meals, especially at night. Frequent, smaller meals are best. Do not lie down right after eating. And dont eat anything 3 hours before going to bed. If you are overweight, losing weight will reduce symptoms. Women should not wear corsets or girdles because this increases pressure on the stomach and worsens reflux. If your symptoms occur during sleep, use a foam wedge to elevate your upper body (not just your head.) Or, place 4" blocks under the head of your bed. Follow Up with your doctor or as advised by our staff. Further testing may be needed. If you do not begin to improve over the next 4 days, contact your doctor. If you had an x-ray, CT scan, or ECG (electrocardiogram), it will be reviewed by a specialist. Youll be notified of any new findings that affect your care. Get Prompt Medical Attention if any of the following occur: Stomach pain gets worse or moves to the lower right abdomen (appendix area) Chest pain appears or gets worse, or spreads to the back, neck, shoulder, or arm Frequent vomiting (cant keep down liquids) Blood in the stool or vomit (red or black in color) Feeling weak or dizzy, fainting, or trouble breathing Fever of 100.4F (38C) or higher, or as directed by your healthcare provider Famotidine Oral tablet What is this medicine? FAMOTIDINE (fa ONEIL harris) is a type of antihistamine that blocks the release of stomach acid. It is used to treat stomach or intestinal ulcers. It can also relieve heartburn from acid reflux. How should I use this medicine? Take this medicine by mouth with a glass of water. Follow the directions on the prescription label. If you only take this medicine once a day, take it at bedtime. Take your doses at regular intervals. Do not take your medicine more often than directed. Talk to your regulatory consultant regarding the use of this medicine in children. Special care may be needed. What side effects may I notice from receiving this medicine? Side effects that you should report to your doctor or health day care provider as soon as possible: agitation, nervousness confusion hallucinations skin rash, itching Side effects that usually do not require medical attention (report to your doctor or health day care provider if they continue or are bothersome): constipation diarrhea dizziness headache What may interact with this medicine? delavirdine itraconazole ketoconazole What if I miss a dose? If you miss a dose, take it as soon as you can. If it is almost time for your next dose, take only that dose. Do not take double or extra doses. Where should I keep my medicine? Keep out of the reach of children. Store at room temperature between 15 and 30 degrees C (59 and 86 degrees F). Do not freeze. Throw away any unused medicine after the expiration date. What should I tell my health care provider before I take this medicine? They need to know if you have any of these conditions: kidney or liver disease trouble swallowing an unusual or allergic reaction to famotidine, other medicines, foods, dyes, or preservatives or trying to get breast-feeding What should I watch for while using this medicine? Tell your doctor or health day care provider if your condition does not start to get better or if it gets worse. Finish the full course of tablets prescribed, even if you feel better. Do not take with aspirin, ibuprofen or other antiinflammatory medicines. These can make your condition worse. Do not smoke cigarettes or drink alcohol. These cause irritation in your stomach and can increase the time it will take for ulcers to heal. If you get black, tarry stools or vomit up what looks like coffee grounds, call your doctor or health day care provider at once. You may have a bleeding ulcer. You have been given the following additional information: Palpitations GERD (Adult) Famotidine Oral tablet (Electronically signed by Sandor Nice Dr. 04/04/2016 2:38)
== END 2016-04-04 02:20 | disposition home or self-care (01) ==
LOC: ED SRH 22:20
DX: R00.2 Palpitations (principal); K21.9 Gastro-esophageal reflux disease without esophagitis
CPT/HCPCS: 90004; 92760; 92761; 92762; 92763; 92764; 92765; 92766; 92767; 93070